=== PATIENT | male | born 1995 | race African-American/Black ===

== ENCOUNTER 2023-03-02 08:13 | Emergency (ER) | payer SELFPAY ==
[2023-03-02] MEDS ORDERED: Ondansetron ODT 4 MG TAB ONE (08:43)
== END 2023-03-02 08:43 | disposition home or self-care (01) ==
LOC: CSHERS 08:13
DX: R11.2 Nausea with vomiting, unspecified (principal); R19.7 Diarrhea, unspecified; F17.210 Nicotine dependence, cigarettes, uncomplicated
CPT/HCPCS: 99283; Q0162